=== PATIENT | female | born 1990 | race Two or more races ===

== ENCOUNTER 2024-06-14 06:09 | Day surgery (SDC) | payer OTHER ==
[2024-06-12 09:37] LABS: URINE APPEARANCE Clear; URINE BILIRRUBIN Negative (NEGATIVE); URINE BLOOD Negative; URINE COLOR Yellow; URINE GLUCOSE Negative (NEGATIVE); URINE KETONE Negative (NEGATIVE); URINE LEUKOCYTE Negative; URINE NITRATE Negative; URINE PROTEIN Negative (NEGATIVE); URINE UROBILINOGEN 0.2 E.U./dl
[2024-06-12 09:39] LABS: URINE EPITHELIAL CELLS 10.1 uL (0.0-38.8); URINE RBC 2.1 uL (0.0-20.8); URINE WBC 8.4 uL (0.0-23.2)
[2024-06-12 09:41] LABS: HEMATOCRIT 33.5 % (36.0-45.00); HEMOGLOBIN 11.1 g/dL (12.0-15.00); MEAN CELL VOLUME 83.7 fL (80.00-100.00); MEAN CORPUSCULAR HEMOGLOBIN 27.8 pg (27.00-32.0); MEAN CORPUSCULAR HGB CONC 33.2 g/dl (32.0-36.0); PLATELET COUNT 433 K/uL (150-450); RED CELL DISTRIBUTION WIDTH 14.8 % (11.5-14.5)
[2024-06-12 09:43] LABS: URINE CAST 0.15 uL (0.0-1.40)
[2024-06-12 10:16] LABS: INR 0.98; PARTIAL THROMBOPLASTIN TIME 29.1 SECONDS (22.0-34.0); PROTHROMBIN TIME 10.7 SECONDS (9.0-11.5)
[2024-06-12 10:22] VITALS: BP 122/81
[2024-06-12 10:28] LABS: ALBUMIN 3.4 gm/dL (3.4-5.0); BILIRUBIN TOTAL 0.15 mg/dL (0.3-1.2); CREATININE SERUM 0.51 mg/dL (0.55-1.02); GFR 138.88; GLOBULINA 4.4 G/DL (2.4-3.5); POTASSIUM 4.19 mEq/L (3.5-5.1); TOTAL PROTEIN 7.8 gm/dL (6.4-8.2)
[~2024-06-14] VITALS: Ht 144.8 cm; Wt 59.9 kg
[2024-06-14] MEDS ORDERED: POVIDONE-IODINE 118 ML BOTT TOP ONE ×2 (08:48→09:40)
[2024-06-14] MEDS ORDERED: METHYLENE BLUE 50MG/10ML AMP IV ONE (10:16)
[2024-06-14] MEDS ORDERED: HEMOSTATIC MATRIX 1 KIT KIT TOP ONE (12:15)
[2024-06-14] MEDS ORDERED: SURGIFLO APPLICATOR 1 EACH APPL TOP ONE (12:15)
[2024-06-14] MEDS ORDERED: KETOROLAC TROMETHAMINE 30 MG VIAL IV STA (12:58)
[2024-06-14] MEDS ORDERED: KETOROLAC TROMETHAMINE 30 MG VIAL ONE (14:59)
== END 2024-06-14 16:55 | disposition home or self-care (01) ==
LOC: CIR.AMB 06:09
PROVIDERS: ATTEND Obstetrics & Gynecology
DX: N80.121 Deep endometriosis of right ovary (principal); N80.122 Deep endometriosis of left ovary; D39.11 Neoplasm of uncertain behavior of right ovary; J45.909 Unspecified asthma, uncomplicated; J32.9 Chronic sinusitis, unspecified; D64.9 Anemia, unspecified